=== PATIENT | female | born 1945 | race Caucasian/White ===

== ENCOUNTER 2021-08-09 12:31 | Emergency (ER) | payer MEDICARE, OTHER ==
[~2021-08-09] VITALS: Ht 167.6 cm; Wt 117.9 kg
[2021-08-09] MEDS ORDERED: SODIUM BICARBONATE 8.4 % INJ 50ML VIAL IV ONE (12:40)
[2021-08-09] MEDS ORDERED: EPINEPHrine HCL 250 ML IV ONE (12:41)
[2021-08-09] MEDS ORDERED: EPINEPHrine HCL 1 MG/10 ML SYRG ONE (12:44)
== END 2021-08-09 12:48 ==
LOC: EDBD 12:31 → ER 12:31
DX: I46.9 Cardiac arrest, cause unspecified (principal)
CPT/HCPCS: 92950; 99291; J0171